=== PATIENT | male | born 1985 | race Caucasian/White ===

== ENCOUNTER 2019-07-14 07:38 | Outpatient (CLI) | payer OTHER ==
[~2019-07-14 07:38] MED LIST: LIPITOR40 MG
== END 2019-07-14 07:50 | disposition home or self-care (01) ==
LOC: NUCLEAR 07:38
DX: I20.8 Other forms of angina pectoris (principal); E78.2 Mixed hyperlipidemia; E66.8 Other obesity
CPT/HCPCS: 78452; 93017; A9500

== ENCOUNTER → 2024-05-20 07:18 | Outpatient (CLI) | payer OTHER | END | disposition home or self-care (01) | LOC: NUCLEAR 07:00 | PROVIDERS: ATTEND Internal Medicine Gastroenterology | DX: K82.9 Disease of gallbladder, unspecified (principal) ==

== ENCOUNTER 2024-10-11 10:57 | Outpatient (CLI) | payer OTHER | END 2024-10-11 11:09 | disposition home or self-care (01) | LOC: SONOGRAMA 10:57 | DX: K81.0 Acute cholecystitis (principal) ==